=== PATIENT | female | born 1960 | race Caucasian/White ===

== ENCOUNTER 2016-11-27 18:00 | Emergency (ER) | payer OTHER ==
[2016-11-27 18:29] VITALS: BP 122/62; PULSE 78; RESP 18; TEMP 98; O2SAT 99
--- NOTE | 2016-11-27 18:58 | UCPHY ---
H & P Patient Type: Established Chief Complaint Nursing Narrative: c/o tailbone pain after fall this thursday- wants XR HPI/ROS: HPI CHIEF COMPLAINT: Tailbone pain HISTORY OF PRESENT ILLNESS: This patient very pleasant 56-year-old female, she fell mechanical trip and fall down her stairs on Thursday or 4 days ago. Patient tells me she slipped down the stairs she landed directly on her coccyx. She has had ongoing pain since. She presents to the urgent care requesting x-ray to see if her coccyx is fractured. She denies any other injury. patient denies any problems urinating, urinary incontinence, denies any bowel incontinence or blood in her stool or trouble using the bathroom. Past Medical History: Denies significant medical history Past Surgical History: Lumbar surgery Social History: denies use of drugs alcohol tobacco products Family History: Noncontributory ROS REVIEW OF SYSTEMS: A comprehensive 10 point review of systems is otherwise negative aside from elements mentioned in the history of present illness. Exam Constitutional triage nursing summary reviewed, vital signs reviewed, awake/ alert. Eyes normal conjunctivae and sclera, EOMI, PERRLA. HENT normal inspection, atraumatic, moist mucus membranes, no epistaxis, neck supple/ no meningismus, no raccoon eyes. Respiratory clear to auscultation bilaterally, normal breath sounds, no respiratory distress, no wheezing. Cardiovascular rate normal, regular rhythm, no murmur, no edema, distal pulses normal. Gastrointestinal soft, non-tender, no rebound, no guarding, normal bowel sounds, no distension, no pulsatile mass. Genitourinary no CVA tenderness. Musculoskeletal tender palpation over her coccyx, no midline vertebral tenderness, full range of motion, no calf swelling, no tenderness of extremities , no meningismus, good pulses, neurovascularly intact. Skin pink, warm, & dry, no rash, skin atraumatic. Neurologic awake, alert and oriented x 3, AAOx3, moves all 4 extremities equally, motor intact, sensory intact, CN II-XII intact, normal cerebellar, normal vision, normal speech. Psychiatric normal mood/affect. Heme/Lymph/Immune no lymphadenopathy. Differential Diagnosis: Includes but is not limited to in a particular coccyx fracture, coccyx contusion Medical Decision Making: patient had an x-ray of her coccyx Re-evaluation: 1907: ED Xray: Coccyx or tailbone: Three view: this shows a coccyx fracture. There appears to be 2 areas of fracture. Patient be placed on [place] for pain control as she has been taking ibuprofen and Tylenol in a not been helping her. Do recommend that she gets a does not to sit on. She continues to have pain I do recommend she follows up with Orthopedics. She denies any rectal bleeding or trouble using the bathroom. Source: Patient - Personal History LMP (Females 10-55): Post Menopausal - Medical/Surgical History Hx Asthma: No Hx Chronic Respiratory Disease: No Hx Diabetes: No Hx Cardiac Disease: No Hx Renal Disease: No Hx Cirrhosis: No Hx Alcoholism: No Hx HIV/AIDS: No Hx Splenectomy or Spleen Trauma: No Other PMH: denies - Family History Significant Family History: No pertinent family hx - Social History Smoking Status: Never smoked Constitutional: Initial Vital Signs Temperature (C) 36.6 C 11/27/16 18:28 Heart Rate 78 11/27/16 18:28 Respiratory Rate 18 11/27/16 18:28 Blood Pressure 122/62 H 11/27/16 18:28 O2 Sat (%) 99 11/27/16 18:28 O2 Delivery Mode Room Air Allergies/Adverse Reactions: No Known Allergies Allergy (Verified 11/24/15 12:31) Home Medications: Medication Instructions Recorded Cymbalta 07/02/15 TOVIAZ 07/02/15 Hydrocodone/APAP 5/325 [[place] 1 - 2 tab PO Q4H PRN #20 tab 11/27/16 5/325] Departure - Departure Disposition: Home, Routine, Self-Care Clinical Impression: Fracture of coccyx Qualifiers: Encounter type: initial encounter Fracture type: closed Qualifier Code: ( S32.2XXA) Fracture of coccyx, initial encounter for closed fracture Condition: Good Instructions: Coccyx Injury (ED) Additional Instructions: 1. If you continue have pain and it becomes very severe please follow up with Orthopedics. 2.This pain should improve over the next 2-3 weeks. [place]errals[place],. [Primary Care Provider] - As per Instructions Alex Emanuel MD [Medical Doctor] - As per Instructions Prescriptions: Hydrocodone/APAP 5/325 [[place] 5/325] 1 - 2 tab PO Q4H PRN #20 tab PRN Reason: Pain, Moderate - PQRS PQRS Measurement: n/a
--- NOTE | 2016-11-27 19:17 | DX ---
Sacrum and Coccyx, 3 Views Clinical Indications: Pain following trauma. Findings: There is a mildly displaced coccygeal fracture. Sacroiliac joints appear intact. No other f ractures seen. Impression: Coccygeal fracture.
== END 2016-11-27 19:22 | disposition home or self-care (01) ==
LOC: CED 18:00
DX: S32.2XXA Fracture of coccyx, initial encounter for closed fracture (principal); W10.8XXA Fall (on) (from) other stairs and steps, initial encounter; Y92.019 Unspecified place in single-family (private) house as the place of occurrence of the external cause; Y99.8 Other external cause status
CPT/HCPCS: 72220-PO; G0463-PO

== ENCOUNTER 2017-12-09 18:26 | Emergency (ER) | payer OTHER ==
[2017-12-09 18:41] VITALS: RESP 18
--- NOTE | 2017-12-09 19:01 | EDPHY ---
H & P Time Seen by Provider: 12/09/17 18:58 HPI/ROS: Chief complaint. Slip and fall, hit head HPI. 57-year-old female slip and fall in driveway at home. Struck her left forehead on the ground. She did not lose consciousness. She is not on blood thinners. She has some discomfort to the left shoulder area as well and to the left side of her neck. No back pain, chest pain, abdominal pain. No other injury to arms or legs. ROS Constitutional. no fever/chills, no weakness Eyes. no problems with vision ENT. Bump to forehead Cardiovascular. no chest pain Respiratory. no shortness of breath, no cough Abdominal. no abdominal pain, no nausea/vomiting, no diarrhea . no problems urinating MS. Left-sided neck pain and left shoulder pain Skin. no rash Lymph. no swollen glands Neuro. no headache, no dizziness, no difficulty walking or with speech Past Medical/Surgical History: Bladder problem, depression Social History: , nonsmoker, no alcohol Smoking Status: Never smoked Physical Exam: General Appearance: Alert well-developed female mild distress vital signs stable Eyes: Pupils equal round reactive.. ENT, slight bump on the left forehead above the left eyebrow. No laceration. No hemotympanum or Schaefer sign. No septal hematoma. Respiratory: There are no retractions, lungs are clear to auscultation. Cardiovascular: Regular rate and rhythm. Gastrointestinal: Abdomen is soft and nontender, no masses, bowel sounds normal. Neurological: Awake and alert, sensory and motor exams grossly normal. Skin: Warm and dry, no rashes. Musculoskeletal: Neck is supple nontender. Patient is mildly tender to the left side of the neck but not over the spinous processes. Extremities symmetrical, full range of motion. Some discomfort about the left shoulder however she is easily able to raise her arms over her head and good range of motion. No obvious swelling or deformity Psychiatric: Patient is oriented X 3, there is no agitation. Constitutional: Initial Vital Signs Temperature (C) 36.9 C 12/09/17 18:38 Heart Rate 86 12/09/17 18:38 Respiratory Rate 18 12/09/17 18:38 Blood Pressure 139/101 H 12/09/17 18:38 O2 Sat (%) 99 12/09/17 18:38 O2 Delivery Mode Room Air Allergies/Adverse Reactions: No Known Allergies Allergy (Verified 12/09/17 18:37) Home Medications: Medication Instructions Recorded Cymbalta 07/02/15 TOVIAZ 07/02/15 ARIPiprazole [Abilify 2 mg (*)] 2 mg PO DAILY 12/09/17 Medical Decision Making ED Course/Re-evaluation: Patient remained stable. I have offered to x-ray her shoulder and her neck however she feels that nothing is broken and these are more contusions and whiplash. She is comfortable treating her symptoms symptomatic Ian and will follow up with her regular physician for x-rays if there continues to be symptoms. She has no signs of concussion. She is alert and oriented. Differential Diagnosis: I considered fracture, dislocation, contusion. No evidence of concussion or intracranial bleeding Departure - Departure Disposition: Home, Routine, Self-Care Clinical Impression: Contusion Qualifiers: Encounter type: initial encounter Contusion area: head Condition: Good Instructions: Contusion in Adults (ED) Additional Instructions: ice to sore areas next 24-48 hours. Tylenol 1000 mg every 4-6 hours, ibuprofen 600 mg every 6 hr as needed for discomfort. Activity as tolerated. Return for worsening symptoms. Recheck in 2 days if not improving Referrals: JANETTE MATA [Other] - 2-3 days, if not improved
[2017-12-09 19:52] VITALS: BP 135/95; PULSE 79; TEMP 98.1; O2SAT 97
== END 2017-12-09 19:52 | disposition home or self-care (01) ==
DX: S00.83XA Contusion of other part of head, initial encounter (principal); W01.198A Fall on same level from slipping, tripping and stumbling with subsequent striking against other object, initial encounter; Y92.009 Unspecified place in unspecified non-institutional (private) residence as the place of occurrence of the external cause